=== PATIENT | female | born 1945 | race Caucasian/White ===

== ENCOUNTER 2019-07-27 17:03 | Observation (INO) ==
[2019-07-27 17:43] LABS: Basophils % 0.6 % (0.0-0.8); Eosinophils # 0.1 10*3/uL (0.0-0.87); Eosinophils % 2.1 % (0.00-10.9); Hematocrit 42.5 VOL% (35.7-47.0); Hemoglobin 14.1 GM/DL (12.0-16.0); Immature Granulocytes % 0.2 %; Immature Granulocytes Absolute 0.01 #; Lymphocytes # 2.2 10*3/uL (1.4-4.0); Lymphocytes % 40.7 % (21.3-54.2); Mean Corpuscular HGB Conc 33.2 GM/DL (32-36); Mean Corpuscular Volume 87.3 FL (87-102); Mean Platelet Volume 8.9 FL (9.6-12.0); Monocytes % 10.6 % (1.7-12.7); Neutrophils % 45.8 % (38.7-73.9); Platelet Count 257 T/CUMM (130-400); Red Blood Count 4.87 MC/CUMM (3.8-5.5); Red Cell Distribution Width 11.9 % (9.3-17.3); White Blood Count 5.4 T/CUMM (4-12)
[2019-07-27 18:07] LABS: Alanine Aminotransferase 28 U/L (13-56); Albumin 3.6 G/DL (3.4-5.0); Alkaline Phosphatase 96 U/L (45-117); Aspartate Amino Transferase 22 U/L (0-37); Blood Urea Nitrogen 11 MG/DL (7-18); Calcium 8.9 MG/DL (8.5-10.1); Estimated Glom Filtration Rate 60 ML/MIN; Glucose 89 MG/DL (74-106); Osmolality,Calculated 274.5 MOS/KG (273-304); Troponin I < 0.015 NG/ML (0.00-0.045)
[2019-07-27] MEDS ORDERED: NITROGLYCERIN 2% OINT 1 INCH/GM PACK TOP STA (19:37)
[2019-07-27] MEDS ORDERED: ASPIRIN 325 MG TABLET PO STA (19:37)
[2019-07-27] MEDS ORDERED: ALUM/MAG/SIMETH/LIDO VISC 1:1 30 ML BOTTLE PO STA (19:37)
[2019-07-27] MEDS ORDERED: ONDANSETRON 4 MG/2 ML VIAL IV STA (19:37)
[2019-07-27] MEDS ORDERED: MORPHINE 4 MG/1 ML VIAL IV STA (19:37)
[2019-07-27] MEDS ORDERED: ONDANSETRON 4 MG/2 ML VIAL IV PRN (23:08)
[2019-07-27] MEDS ORDERED: BISACODYL 5 MG TABLET PO PRN (23:08)
[2019-07-27] MEDS ORDERED: MORPHINE 4 MG/1 ML VIAL IV PRN (23:08)
[2019-07-27] MEDS ORDERED: NITROGLYCERIN SL 0.4 MG TABLET SL PRN (23:08)
[2019-07-27] MEDS ORDERED: ENOXAPARIN 40 MG/0.4 ML SYRINGE SUBCUT SCH (23:30)
[2019-07-27] MEDS ORDERED: PNEUMOCOCCAL VACCINE (13 VALENT) 0.5 ML SYRINGE IM ONE (23:31)
[2019-07-28] MEDS: ACETAMINOPHEN 325 MG TABLET PO PRN ×2 (04:07→09:19)
[2019-07-28 04:20] LABS: Basophils % 0.9 % (0.0-0.8); Eosinophils # 0.1 10*3/uL (0.0-0.87); Eosinophils % 3.3 % (0.00-10.9); Hematocrit 42.5 VOL% (35.7-47.0); Hemoglobin 14.1 GM/DL (12.0-16.0); Immature Granulocytes % 0.2 %; Immature Granulocytes Absolute 0.01 #; Lymphocytes # 2.1 10*3/uL (1.4-4.0); Lymphocytes % 49.5 % (21.3-54.2); Mean Corpuscular HGB Conc 33.2 GM/DL (32-36); Mean Corpuscular Volume 86.2 FL (87-102); Mean Platelet Volume 9.1 FL (9.6-12.0); Monocytes % 11.3 % (1.7-12.7); Neutrophils % 34.8 % (38.7-73.9); Platelet Count 240 T/CUMM (130-400); Red Blood Count 4.93 MC/CUMM (3.8-5.5); White Blood Count 4.3 T/CUMM (4-12)
[2019-07-28] MEDS ORDERED: hydrALAZINE 20 MG/1 ML VIAL IV PRN (04:31)
[2019-07-28 04:45] LABS: Calcium 8.3 MG/DL (8.5-10.1); Osmolality,Calculated 278.3 MOS/KG (273-304); Risk Ratio 3.25; Thyroid Stimulating Hormone 2.53 uIU/ml (0.358-3.74); VLDL CHOLESTEROL 19.6 MG/DL
[2019-07-28 06:07] LABS: Band Neutrophils 1 % (0-10); Eosinophils 7 % (0-10); Lymphocytes 42 % (20-55); Platelet Estimate Normal; Reactive Lymphocytes 2+; Segmented Neutrophils 38 % (50-85); Total Cells Counted 100
[2019-07-28 07:58] VITALS: BP 126/81
[2019-07-28] MEDS ORDERED: PANTOPRAZOLE 40 MG TABLET PO SCH (09:00)
[2019-07-28] MEDS ORDERED: ASPIRIN EC 81 MG TABLET PO SCH (09:00)
[2019-07-28] MEDS ORDERED: amLODIPine 5 MG TABLET PO SCH (09:00)
== END 2019-07-28 13:54 | disposition home or self-care (01) ==
LOC: N.EDINP 17:03 → N.ED 17:03 → N.2W 20:56
PROVIDERS: ADMIT Internal Medicine; ATTEND Internal Medicine